=== PATIENT | male | born 1970 | race Two or more races ===

== ENCOUNTER 2016-08-08 09:00 | Emergency (ER) | payer MEDICAID ==
[~2016-08-08] VITALS: Ht 175.3 cm; Wt 79.4 kg
[2016-08-08 09:35] VITALS: BP 124/88
[2016-08-08] MEDS ORDERED: TETANUS-DIPTH-ACEL PERTUSSIS 0.5ML SYRG IM ONE (10:15)
== END 2016-08-08 10:13 | disposition home or self-care (01) ==
LOC: ER 09:11
DX: S20.319A Abrasion of unspecified front wall of thorax, initial encounter (principal); J45.909 Unspecified asthma, uncomplicated; F17.290 Nicotine dependence, other tobacco product, uncomplicated; W54.0XXA Bitten by dog, initial encounter; Y93.89 Activity, other specified; Y92.89 Other specified places as the place of occurrence of the external cause; Y99.8 Other external cause status
CPT/HCPCS: 90471; 90715

== ENCOUNTER 2016-09-05 21:45 | Emergency (ER) | payer MEDICAID ==
[~2016-09-05] VITALS: Ht 175.3 cm; Wt 79.4 kg
[2016-09-05 22:06] VITALS: BP 120/85
[2016-09-05] MEDS ORDERED: IBUPROFEN 600 MG TAB PO ONE (22:45)
[2016-09-05] MEDS ORDERED: CYCLOBENZAPRINE HCL 10 MG TAB PO ONE (22:45)
== END 2016-09-05 22:55 | disposition home or self-care (01) ==
LOC: ER 21:52
DX: S39.012A Strain of muscle, fascia and tendon of lower back, initial encounter (principal); S70.312A Abrasion, left thigh, initial encounter; J45.909 Unspecified asthma, uncomplicated; M54.9 Dorsalgia, unspecified; G89.29 Other chronic pain; F17.210 Nicotine dependence, cigarettes, uncomplicated; W18.39XA Other fall on same level, initial encounter; W54.0XXA Bitten by dog, initial encounter; Y93.89 Activity, other specified; Y92.89 Other specified places as the place of occurrence of the external cause; Y99.8 Other external cause status

== ENCOUNTER 2016-10-19 16:25 | Emergency (ER) | payer MEDICAID ==
[~2016-10-19] VITALS: Ht 175.3 cm; Wt 78.5 kg
[2016-10-19 18:41] VITALS: BP 137/84
== END 2016-10-19 20:05 | disposition home or self-care (01) ==
LOC: ER 16:28
DX: K08.89 Other specified disorders of teeth and supporting structures (principal); J45.909 Unspecified asthma, uncomplicated; F17.210 Nicotine dependence, cigarettes, uncomplicated

== ENCOUNTER 2017-03-06 18:56 | Emergency (ER) | payer MEDICAID ==
[~2017-03-06] VITALS: Ht 175.3 cm; Wt 81.6 kg
[2017-03-06 19:30] VITALS: BP 143/98
== END 2017-03-06 23:23 | disposition left against medical advice (07) ==
LOC: ER 19:17
DX: K08.89 Other specified disorders of teeth and supporting structures (principal); Z53.21 Procedure and treatment not carried out due to patient leaving prior to being seen by health care provider

== ENCOUNTER 2017-06-14 20:27 | Emergency (ER) | payer MEDICAID ==
[~2017-06-14] VITALS: Ht 175.3 cm; Wt 81.6 kg
[2017-06-14 20:48] VITALS: BP 133/86
== END 2017-06-14 21:55 | disposition left against medical advice (07) ==
LOC: ER 20:27
DX: M25.511 Pain in right shoulder (principal); M25.512 Pain in left shoulder; Z53.21 Procedure and treatment not carried out due to patient leaving prior to being seen by health care provider

== ENCOUNTER 2017-12-10 16:04 | Emergency (ER) | payer MEDICAID ==
[~2017-12-10] VITALS: Ht 175.3 cm; Wt 79.4 kg
[2017-12-10 16:16] VITALS: BP 128/86
== END 2017-12-10 17:06 | disposition left against medical advice (07) ==
LOC: ER 16:04
DX: H57.12 Ocular pain, left eye (principal); Z53.21 Procedure and treatment not carried out due to patient leaving prior to being seen by health care provider

== ENCOUNTER 2019-10-03 16:31 | Emergency (ER) | payer MEDICAID ==
[~2019-10-03] VITALS: Ht 175.3 cm; Wt 83.9 kg
[2019-10-03 20:40] VITALS: BP 146/96
== END 2019-10-03 20:49 | disposition home or self-care (01) ==
LOC: ER 16:31
DX: S70.311A Abrasion, right thigh, initial encounter (principal); N50.811 Right testicular pain; J45.909 Unspecified asthma, uncomplicated; M62.838 Other muscle spasm; X50.0XXA Overexertion from strenuous movement or load, initial encounter; Y93.43 Activity, gymnastics; Y92.39 Other specified sports and athletic area as the place of occurrence of the external cause; Y99.8 Other external cause status
CPT/HCPCS: 76870

== ENCOUNTER 2020-11-08 01:47 | Emergency (ER) | payer MEDICAID ==
[~2020-11-08] VITALS: Ht 175.3 cm; Wt 90.7 kg
[2020-11-08 02:36] LABS: Basophils # (auto) 0.1 10 ^3/uL (0-0.2); Basophils % (auto) 0.9 % (0.0-2.0); Eosinophils # (auto) 0.4 10 ^3/uL (0-0.8); Eosinophils % (auto) 5.5 % (0.0-7.0); Hematocrit 41.9 % (41.0-53.0); Hemoglobin 14.1 g/dL (13.5-17.5); Lymphocytes % (auto) 25.8 % (10.0-50.0); Mean Corpuscular Hemoglobin 29.3 pg (28.0-32.0); Mean Corpuscular Hgb Conc. 33.7 g/dL (32.0-36.0); Mean Corpuscular Volume 87.2 fL (80.0-100.0); Monocytes # (auto) 0.7 10 ^3/uL (0-1.3); Monocytes % (auto) 8.7 % (0.0-12.0); Neutrophils # (auto) 4.7 10 ^3/uL (1.6-8.6); Neutrophils % (auto) 59.1 % (37.0-80.0); Nucleated Red Blood Cells % 0.1 %; Platelet Count (auto) 291 10^3/uL (140-450); Red Blood Cells 4.81 10^6/uL (4.5-5.90); Red Cell Distribution Width 13.6 % (11.8-14.3); White Blood Cell 7.9 10^3/uL (4.4-10.8)
[2020-11-08 02:50] LABS: Albumin 3.5 g/dL (3.4-5.0); Calcium 8.3 mg/dL (8.5-10.1); Potassium 3.6 mmol/L (3.5-5.1)
[2020-11-08 02:52] LABS: INR 1.03 (0.9-1.15); Partial Thromboplastin Time 26.1 sec (23.0-31.2)
[2020-11-08 02:54] LABS: BUN/Creatinine Ratio 9.6; Bilirubin, Total 0.5 mg/dL (0.2-1.0); Total Protein 7.2 g/dL (6.4-8.2)
[2020-11-08 03:45] VITALS: BP 133/91
== END 2020-11-08 04:15 | disposition home or self-care (01) ==
LOC: ER 01:47
DX: J32.9 Chronic sinusitis, unspecified (principal)
CPT/HCPCS: 36415; 70450; 70486; 72125; 80053; 85025; 85610; 85730

== ENCOUNTER → 2021-06-24 | Emergency (ER) | payer MEDICAID ==
[~2021-06-24] VITALS: Ht 172.7 cm; Wt 93.0 kg
[2021-06-24 02:36] LABS: Urine Bacteria NONE SEEN /hpf (None Seen); Urine Blood Negative /uL (Negative); Urine Specific Gravity 1.015 (1.001-1.035); Urine WBC 1 /hpf (0 - 3)
[2021-06-24 03:35] VITALS: BP 149/93
== END | disposition home or self-care (01) ==
LOC: ER 01:41
DX: N39.0 Urinary tract infection, site not specified (principal); J45.909 Unspecified asthma, uncomplicated; F17.210 Nicotine dependence, cigarettes, uncomplicated
CPT/HCPCS: 81001

== ENCOUNTER 2021-11-17 07:19 | Emergency (ER) | payer MEDICAID ==
[~2021-11-17] VITALS: Ht 175.3 cm; Wt 90.7 kg
[2021-11-17] MEDS ORDERED: IBU600T PO (08:07)
[2021-11-17] MEDS ORDERED: KETOROLAC TROMETH 60MG/2ML VIAL IM ONE (08:15)
[2021-11-17 08:41] VITALS: BP 136/88
== END 2021-11-17 08:50 | disposition home or self-care (01) ==
LOC: ER 07:19
DX: M79.10 Myalgia, unspecified site (principal); M25.522 Pain in left elbow; J45.909 Unspecified asthma, uncomplicated; F17.210 Nicotine dependence, cigarettes, uncomplicated
CPT/HCPCS: 73080; 96372; 99283; J1885

== ENCOUNTER 2022-07-04 02:40 | Emergency (ER) | payer MEDICAID ==
[~2022-07-04] VITALS: Ht 175.3 cm; Wt 81.0 kg
[~2022-07-04 02:40] MED LIST: IBU600T PO
[2022-07-04] MEDS ORDERED: ALBUTEROL SULF 2.5 MG/0.5ML(0.5%) NEB SOLN NEB ONE (02:45)
[2022-07-04] MEDS ORDERED: IPRATROPIUM BROM 0.5 MG/2.5ML INH SOL NEB ONE (02:45)
[2022-07-04] MEDS ORDERED: ALBUAER3 IN (04:01)
[2022-07-04] MEDS ORDERED: PRED20TA2 PO (04:01)
[2022-07-04] MEDS ORDERED: AMOX-277 PO (04:01)
[2022-07-04 04:28] VITALS: BP 128/79
== END 2022-07-04 04:28 | disposition home or self-care (01) ==
LOC: ER 02:42
DX: J45.901 Unspecified asthma with (acute) exacerbation (principal); H66.92 Otitis media, unspecified, left ear
CPT/HCPCS: 94640; 99283; J7644

== ENCOUNTER → 2022-09-14 | Emergency (ER) | payer MEDICAID ==
[~2022-09-14] VITALS: Ht 175.3 cm; Wt 90.0 kg
[~2022-09-14] MED LIST changes: +ALBUAER3 IN; +AMOX-277 PO; +CIPRSUS OT; +IBUP800T27 PO; +PRED20TA2 PO
[2022-09-14 14:16] VITALS: BP 122/69
== END | disposition home or self-care (01) ==
LOC: ER 12:21
DX: S16.1XXA Strain of muscle, fascia and tendon at neck level, initial encounter (principal); S00.33XA Contusion of nose, initial encounter; H60.91 Unspecified otitis externa, right ear; J45.909 Unspecified asthma, uncomplicated; Z79.1 Long term (current) use of non-steroidal anti-inflammatories (NSAID); Z79.2 Long term (current) use of antibiotics; Z79.899 Other long term (current) drug therapy; W01.0XXA Fall on same level from slipping, tripping and stumbling without subsequent striking against object, initial encounter; Y93.89 Activity, other specified; Y92.89 Other specified places as the place of occurrence of the external cause; Y99.8 Other external cause status
CPT/HCPCS: 70160; 72040

== ENCOUNTER 2022-09-28 14:33 | Emergency (ER) | payer MEDICAID ==
[~2022-09-28] VITALS: Ht 175.3 cm; Wt 88.5 kg
[2022-09-28 14:40] VITALS: BP 127/87
[2022-09-28] MEDS ORDERED: BACL10TA PO (16:17)
== END 2022-09-28 16:22 | disposition home or self-care (01) ==
LOC: ER 14:33
DX: T16.2XXA Foreign body in left ear, initial encounter (principal); J45.909 Unspecified asthma, uncomplicated; F17.210 Nicotine dependence, cigarettes, uncomplicated; Z79.899 Other long term (current) drug therapy; X58.XXXA Exposure to other specified factors, initial encounter; Y93.89 Activity, other specified; Y92.89 Other specified places as the place of occurrence of the external cause; Y99.8 Other external cause status

== ENCOUNTER 2022-10-10 18:17 | Emergency (ER) | payer MEDICAID ==
[~2022-10-10] VITALS: Ht 175.3 cm; Wt 87.0 kg
[~2022-10-10 18:17] MED LIST changes: +BACL10TA PO
[2022-10-10] MEDS ORDERED: COROSUS LEFT EAR (19:44)
[2022-10-11 00:38] VITALS: BP 134/85
== END 2022-10-11 00:39 | disposition home or self-care (01) ==
LOC: ER 18:19
DX: H60.8X2 Other otitis externa, left ear (principal); J45.909 Unspecified asthma, uncomplicated; Z79.899 Other long term (current) drug therapy